=== PATIENT | male | born 1970 | race Caucasian/White ===

== ENCOUNTER 2017-07-13 14:40 | Emergency (ER) | payer OTHER ==
[~2017-07-13] VITALS: Ht 167.6 cm; Wt 64.0 kg
[2017-07-13 14:43] VITALS: BP 133/77; PULSE 113; RESP 20; TEMP 98.7; O2SAT 97
--- NOTE | 2017-07-13 15:24 | PD ---
Physical Exam Date Seen by Provider: Jul 13, 2017 Time Seen by Provider: 15:22 Narrative 47 yr old male here with c/o right shoulder pain s/p fall yesterday. He says he fell and tried to catch himself and now has pain. He says he hit his head and + LOC for a minute. He admits to headache and dizziness. Rates pain as 10/10. Data Data Last Documented VS Vital Signs Date Time Temp Pulse Resp B/P (MAP) Pulse Ox O2 Delivery O2 Flow Rate FiO2 07/13/17 14:43 98.7 113 20 133/77 (95) 97 Room Air [facility] Medical Record Reviewed: Yes Supervised Visit with PAULY: No Condition: Stable Mayda Kelsey Jul 13, 2017 15:24
--- NOTE | 2017-07-13 16:07 | RADRPT ---
EXAM DATE/TIME: 07/13/2017 15:38 [place] COMPARISON: No previous studies available for comparison. INDICATIONS : Right shoulder pain after patient fell from a balcony last night MEDICAL HISTORY : None. SURGICAL HISTORY : None. ENCOUNTER: Initial ACUITY: 1 day PAIN SCORE: 10/10 LOCATION: Right entire shoulder FINDINGS: Degenerative changes are present about the right shoulder without fracture. Alignment is anatomic. CONCLUSION: Degenerative changes, negative for fracture. Jose Jacob MD FACR on July 13, 2017 at 16:04 Board Certified Radiologist. This report was verified electronically.
--- NOTE | 2017-07-13 17:44 | PD ---
HPI . right shoulder pain Chief Complaint: Injury Time Seen by Provider: 17:44 Travel History International Travel<30 days: No Contact w/Intl Traveler<30days: No Traveled to known affect area: No History of Present Illness HPI 47-year-old male here with complaints of right shoulder pain status post fall yesterday. Patient says that he was falling and try to put his arm out behind him and felt a popping sensation. Now he is complaining of severe pain in his right shoulder. He tells me has limited range of motion and was really concerned about it. He also reports that he hit his head and may have had a very brief period of LOC. He was seen in triage and admitted to some dizziness and headache. Right now he only has right shoulder pain, he rates it as moderate to severe and requesting something for the pain. [facility] Past Medical History Cardiovascular Problems: Yes (HTN, [place]) Social History Tobacco Use: Yes Allergies-Medications (Allergen,Severity, Reaction): Coded Allergies: diazepam (Verified Allergy, Unknown, Itching, 07/13/17) naproxen (Verified Allergy, Unknown, Rash, 07/13/17) Reported Meds & Prescriptions Reported Meds & Active Scripts Active Robaxin (Methocarbamol) 500 Mg Tab 500 Mg PO TID 3 Days Review of Systems General / Constitutional: No: Fever Eyes: No: Visual changes HENT: No: Headaches Cardiovascular: No: Chest Pain or Discomfort Respiratory: No: Shortness of Breath Gastrointestinal: No: Abdominal Pain Genitourinary: No: Dysuria Musculoskeletal: Positive: Pain (right shoulder pain ) Skin: No Rash Neurologic: No: Weakness Psychiatric: No: Depression Endocrine: No: Polydipsia Hematologic/Lymphatic: No: Easy Bruising Physical Exam Narrative GENERAL: AAO x 3, no acute distress, Well-nourished, well-developed patient. SKIN: Warm and dry. No visible rashes or bruising. HEAD: Normocephalic and atraumatic. EYES: No scleral icterus. No injection or drainage. EOM intact, PERRLA ENT: No nasal drainage noted. Mucous membranes pink. Airway patent. NECK: Supple, trachea midline. No JVD. CARDIOVASCULAR: Regular rate and rhythm without murmurs, gallops, or rubs. RESPIRATORY: Breath sounds equal bilaterally. No accessory muscle use. No rhonchi or rales. GASTROINTESTINAL: Abdomen soft, non-tender, nondistended. EXTREMITIES: No cyanosis or edema. Right shoulder with decreased range of motion secondary pain. Pain elicited with internal and external rotation. BACK: No obvious deformity. NEURO: CN II-12 intact, overedge sewer strength normal b/l, PSYCH: AAO x 3, normal affect. Data Data Last Documented VS Vital Signs Date Time Temp Pulse Resp B/P (MAP) Pulse Ox O2 Delivery O2 Flow Rate FiO2 07/13/17 18:58 94 16 100 Room Air 07/13/17 14:43 98.7 Orders Orders Shoulder, Complete (>2vws) (07/13/17 15:24) Orphenadrine Inj (Norflex Inj) (07/13/17 18:00) Splint Or Brace Apply/Monitor (07/13/17 18:51) MDM Medical Decision Making Medical Screen Exam Complete: Yes Emergency Medical Condition: Yes Medical Record Reviewed: Yes Differential Diagnosis possible shoulder dislocation, less likely fracture, rotator cuff injury Narrative Course 47-year-old male here with complaints of right shoulder pain. He reports a brief LOC. I have assessed the patient. Xray ordered in triage: I do not believe he needs imaging of his head. Per [place] CT rules he does not meet criteria. I have provided him with toradol and norflex here in the ED. Muscle relaxers at home. Advised f/u with PCP as I suspect this could be rotator cuff injury. I discussed with patient. Sling upon discharge. Diagnosis Primary Impression: Right shoulder pain Qualified Codes: M25.511 - Pain in right shoulder Referrals: [facility] Patient Instructions: General Instructions Additional Instructions: Muscle relaxers can cause drowsiness. Do not drive, swim or operate heavy machinery while using these medications. Please return to emergency department if your symptoms return or worsen. Follow up with your primary care provider. Take medications as prescribed. Med/Other Pt SpecificInfo: Prescription(s) given Scripts Methocarbamol (Robaxin) 500 Mg Tab 500 MG PO TID for Muscle Spasm for 3 Days, #15 TAB 0 Refills Prov: Maik Patel MD 07/13/17 Disposition: 01 DISCHARGE HOME Condition: Stable Mayda Kelsey Jul 13, 2017 17:44
[2017-07-13] MEDS ORDERED: ORPHENADRINE INJ 60 MG/2 ML AMP IM ONE (18:00)
[2017-07-13 18:58] VITALS: PULSE 94; RESP 16; O2SAT 100
[2017-07-13] MEDS ORDERED: ROBA500T PO (19:02)
== END 2017-07-13 19:29 | disposition home or self-care (01) ==
LOC: NEPD 14:40
DX: M25.511 Pain in right shoulder (principal); R51 Headache; R42 Dizziness and giddiness; I10 Essential (primary) hypertension; I25.2 Old myocardial infarction; Z72.0 Tobacco use; W19.XXXA Unspecified fall, initial encounter
CPT/HCPCS: 29125; 73030; 96372; 99284; J2360